=== PATIENT | male | born 1995 | race Two or more races ===

== ENCOUNTER 2020-04-02 06:49 | Emergency (ER) | payer SELFPAY ==
[~2020-04-02] VITALS: Ht 190.5 cm; Wt 77.1 kg
[2020-04-02 06:51] VITALS: BP 117/68
--- NOTE | 2020-04-02 07:00 | NUR ---
DR HER AT BEDSIDE
== END 2020-04-02 07:12 | disposition home or self-care (01) ==
LOC: ER 06:56
DX: J36 Peritonsillar abscess (principal)